=== PATIENT | female | born 2000 | race Caucasian/White ===

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

== ENCOUNTER 2022-10-02 19:10 | Emergency (ER) | payer OTHER ==
[~2022-10-02 19:10] MED LIST: Iopamidol 370 76% 125 ML VIAL FS ONE; Sodium Chloride 0.9% 100 ML BAG ONE
[2022-10-02] MEDS ORDERED: Sodium Chloride 0.9% 1,000 ML ONE (20:21)
[2022-10-02] MEDS ORDERED: Ketorolac Tromethamine 30 MG/ML VIAL ONE (20:21)
[2022-10-02] MEDS ORDERED: Dexamethasone 10 MG/ML VIAL ONE (20:21)
[2022-10-02] MEDS ORDERED: Ondansetron PF 4 MG/2 ML Vial ONE (20:22)
[2022-10-02 20:58] LABS: PTT 30.6 sec (22.9-36.1)
[2022-10-02 21:01] LABS: D-Dimer Test 0.75 *mcg/mL (0.27-0.43)
[2022-10-02 21:05] LABS: ALT (SGPT) 28 U/L (8-55); AST (SGOT) 27 U/L (5-34); Albumin 4.6 g/dL (3.5-5.0); Alkaline Phosphatase 71 U/L (40-100); Anion Gap 16 mmol/L (10-20); BUN (Urea Nitrogen) 13 mg/dL (7.0-18.7); Bilirubin, Total 0.5 mg/dL (0.2-1.2); Calc. Creatinine Clearance 0 mL/min (70-130); Calcium 9.6 mg/dL (7.8-10.44); Carbon Dioxide 19 mmol/L (22-29); Chloride 108 mmol/L (98-107); Estimated GFR 115; Globulin 3.7 g/dL (2.4-3.5); Glucose 87 mg/dL (70-105); Lipase 22 U/L (8-78); Potassium 3.7 mmol/L (3.5-5.1); Protein, Total 8.3 g/dL (6.0-8.3); Sodium 139 mmol/L (136-145)
[2022-10-02 21:13] LABS: Band 16 % (5-11); Eosinophils 1 % (0-10); Hemoglobin 14.4 g/dL (12.0-16.0); Lymphocytes 14 % (28-48); MDiff Complete? YES; Mean Corpuscular HGB CONC 31.8 g/dL (32.0-36.0); Mean Corpuscular Hemoglobin 27.7 pg (25.0-35.0); Mean Platelet Volume 11.9 fL (7.4-10.4); Monocytes 2 % (0-4); Neutrophil 66 % (31-61); Platelet Count 171 10x3/uL (130-400); RBC Distribution Width 11.8 % (11.5-14.5); RBC Morphology Normal; Red Blood Cell (RBC) Count 5.19 mill/uL (4.00-5.20); White Blood Cell (WBC) Count 15.8 10x3/uL (4.8-10.8)
[2022-10-02 22:27] LABS: Pregnancy Test - Urine (BHCG) Negative (Negative); Pregu Control Background? CLEAR/WHITE (CLR/WHITE); Pregu Control Bar Appear? YES (CONTROL BAR); Specific Gravity 1.032 (1.002-1.036)
[2022-10-03 00:20] LABS: Bilirubin Negative (Negative); Blood, Urine Negative (Negative); Clarity Clear (Clear); Glucose, Urine (Dipstick) Negative (Negative); Ketone, Urine 15 mg/dL (Negative); Leukocyte Negative (Negative); Nitrite Negative (Negative); Protein, Urine (Dipstick) Negative (Neg-Trace); pH, Urine 5.5 (5.0-9.0)
[2022-10-03 00:23] LABS: Specific Gravity, Urine 1.032 (1.002-1.036)
== END 2022-10-02 23:54 | disposition home or self-care (01) ==
LOC: MADERS 19:10
DX: J20.9 Acute bronchitis, unspecified (principal); F17.210 Nicotine dependence, cigarettes, uncomplicated; Z79.899 Other long term (current) drug therapy
CPT/HCPCS: 71045; 71275; 80053; 81003; 81025; 83690; 83880; 84484; 85025; 85379; 85610; 85730; 87081; 87430; 87804; 93005; 96361; 96374; 96375; J1100; J1885; J2405; J7050; J7620; Q9967